=== PATIENT | male | born 1935 | race Caucasian/White ===

== ENCOUNTER 2019-02-18 23:14 | Inpatient (IN) | payer MEDICARE, OTHER ==
[~2019-02-18] VITALS: Ht 175.3 cm; Wt 70.2 kg
--- NOTE | 2019-02-18 23:30 | NUR ---
PT ARRIVES POST SYNCOPAL EPISODE PER , NOTED TO BE IN 2:1 ATRIAL FLUTTER.
[2019-02-18] MEDS ORDERED: diltiazem 5mg/ml 5ml inj. IV ONE (23:35)
[2019-02-18] MEDS ORDERED: POTA10TA19 PO (23:40)
[2019-02-18] MEDS ORDERED: FURO-150 PO (23:41)
[2019-02-18] MEDS ORDERED: METO25TA6 PO (23:41)
[2019-02-18] MEDS ORDERED: ATOR20TA PO (23:41)
--- NOTE | 2019-02-18 23:49 | NUR ---
PT HEART DOWN TO 70'S, STILL IN AFLUTTER WITH VARIABLE RATE.
[2019-02-19] VITALS (12 sets, daily range): BP systolic 118–137; BP diastolic 59–86
[2019-02-19 00:10] LABS: ALANINE AMINOTRANSFERASE 42 U/L (12-78); ALBUMIN 3.5 G/DL (3.4-5.0); ALBUMIN/GLOBULIN RATIO 1.2 (1.1-1.5); ALKALINE PHOSPHATASE 66 IU/L (46-116); ANION GAP 7 (8-16); ASPARTATE AMINO TRANSFERASE 41 U/L (10-37); BILIRUBIN,TOTAL 0.4 MG/DL (0.1-1.0); BLOOD UREA NITROGEN 24 MG/DL (7-18); BUN/CREATININE RATIO 19.2 (5.4-32.0); CALCIUM 8.8 MG/DL (8.5-10.1); CHLORIDE 108 MMOL/L (99-107); CREATININE 1.25 MG/DL (0.60-1.10); GLUCOSE 112 MG/DL (70-104); POTASSIUM 3.8 MMOL/L (3.5-5.1); SODIUM 145 MMOL/L (135-145); TOTAL CARBON DIOXIDE 29.7 MMOL/L (24-32); TOTAL PROTEIN 6.4 G/DL (6.4-8.2); eGFR 55 ML/MIN
[2019-02-19 00:17] LABS: MAGNESIUM 2.2 MG/DL (1.5-2.4)
[2019-02-19] MEDS ORDERED: aspirin 81mg tab.chew PO ONE (00:25)
[2019-02-19 00:31] LABS: BASOPHILS # (AUTO) 0.1 X10'3 (0-0.2); BASOPHILS % (AUTO) 1.2 % (0-1); EOSINOPHILS # (AUTO) 0.1 X10'3 (0-0.9); EOSINOPHILS % (AUTO) 2.1 % (0-6); HEMATOCRIT 31.9 % (42.0-52.0); HEMOGLOBIN 10.8 g/dl (14.0-17.9); LYMPHOCYTES # (AUTO) 1.3 X10'3 (1.1-4.8); LYMPHOCYTES % (AUTO) 24.4 % (21-51); MEAN CORPUSCULAR HEMOGLOBIN 35.9 PG (27.0-31.0); MEAN CORPUSCULAR HGB CONC 33.8 g/dL (33.0-36.5); MEAN CORPUSCULAR VOLUME 106.4 FL (78-98); MEAN PLATELET VOLUME 11.5 FL (7.4-10.4); MONOCYTES # (AUTO) 0.5 X10'3 (0-0.9); MONOCYTES % (AUTO) 8.8 % (2-12); NEUTROPHILS # (AUTO) 3.4 X10'3 (1.8-7.7); NEUTROPHILS % (AUTO) 63.5 % (42-75); PLATELET COUNT 87 X10'3 (140-440); RED CELL DISTRIBUTION WIDTH 13.8 % (11.5-14.5); WHITE BLOOD COUNT 5.4 X10'3 (4.5-11.0)
[2019-02-19 00:32] LABS: INR 1.1 INR; PARTIAL THROMBOPLASTIN TIME 25 SECONDS (22-32)
[2019-02-19 01:02] LABS: PLATELET ESTIMATE DECREASED
[2019-02-19 01:03] LABS: LARGE PLATELETS MODERATE
[2019-02-19] MEDS ORDERED: enoxaparin 100mg/ml syringe SUBCUT ONE (01:15)
[2019-02-19] MEDS ORDERED: enoxaparin 80mg/0.8ml syringe SUBCUT ONE (01:15)
--- NOTE | 2019-02-19 01:19 | NUR ---
2ND TIME CALLING FOR @ 01:20
--- NOTE | 2019-02-19 03:07 | NUR ---
3 HR TROP DRAWN, PT COMFORTABLE, DENIES CP OR WEAKNESS/DIZZINESS. AWAITING ADMIT ORDERS.
[2019-02-19] MEDS ORDERED: normal saline 1000ml 1,000 ML IV SCH (03:26)
[2019-02-19] MEDS ORDERED: acetaminophen 325mg tablet PO PRN (03:30)
[2019-02-19] MEDS ORDERED: mag hydrox/Alum hydrox/simeth 30ml oral suspension PO PRN (03:30)
[2019-02-19] MEDS ORDERED: ondansetron/PF 4mg/2ml inj IV PRN ×2 (03:30→17:00)
[2019-02-19] MEDS ORDERED: magnesium hydroxide 30ml (MOM) UD suspension PO PRN (03:30)
--- NOTE | 2019-02-19 06:51 | NUR ---
Patient in room MED 307. I have received report from Lamont ARAMBULA and had the opportunity to ask questions and assume patient care.
--- NOTE | 2019-02-19 07:46 | NUR ---
Critical trop 2.1, paged Dr Smiley PAGER ID: [phone] MESSAGE: Liss on ACCE at [phone] re Sarbjit Gutierrez in 307. He has a critical troponin this morning of 2.1, this is up from 1.64. He is also in A Flutter with a current rate of 108. please advise Addendum: 02/19/19 at 0747 by Liss Khanna RN Sherice returned my call, She said to DC the lovenox and she will be over here to assess patient.
[2019-02-19] MEDS ORDERED: enoxaparin 60mg/0.6ml syringe SUBCUT SCH (08:00)
[2019-02-19] MEDS ORDERED: diltiazem-D5W 125mg/125ml 125 ML IV SCH (08:20)
[2019-02-19] MEDS ORDERED: metoprolol tartrate 12.5mg (1/2 tablet) PO SCH ×2 (09:20→20:00)
--- NOTE | 2019-02-19 11:20 | NUR ---
DR. DOVE PRESENT TO CONSULT WITH PATIENT ABOUT LIQUID YEAST SUPERVISOR WITH PRESENT AT BEDSIDE DISCUSSING OPTIONS WITH MD. PLAN IS TO GO TO LIQUID YEAST SUPERVISOR TODAY.
--- NOTE | 2019-02-19 11:25 | NUR ---
Trop 2.05, Dr Hudson present and aware of troponin. Patient going to wastewater analyst lab analyst today.
[2019-02-19] MEDS ORDERED: fentaNYL/PF 50MCG/1 ML 2ML syringe ONE (13:03)
[2019-02-19] MEDS ORDERED: LIDOcaine 1% (10mg/ml)w/preservative injection 20ml MDV ONE (13:04)
[2019-02-19] MEDS ORDERED: iohexol 350 MG/ML 50ML vial IV ONE ×2 (13:04→13:50)
[2019-02-19] MEDS ORDERED: midazolam 2 mg/2 ml injection ONE (13:04)
[2019-02-19] MEDS ORDERED: iohexol 350MG/ML 100ml bottle IV ONE (13:04)
--- NOTE | 2019-02-19 13:20 | NUR ---
Patient picked up and taken to medical lab technologist, with present at time of departure.
--- NOTE | 2019-02-19 14:40 | NUR ---
DAJA RN ATTEMPTED TO CALL REPORT TO PCU- PATIENT GOING TO [id number]
--- NOTE | 2019-02-19 14:40 | NUR ---
Attempted to call report to PCU, patient transferring to room 3025B after clinical lab specialist.
--- NOTE | 2019-02-19 15:20 | NUR ---
Problems reprioritized. Patient report given, questions answered & plan of care reviewed with Joseline ARAMBULA.
[2019-02-19] MEDS: normal saline 1000ml 1,000 ML IV SCH (16:55)
[2019-02-19] MEDS ORDERED: HYDROcodone/acetaminophen 5mg/325mg tablet PO PRN (17:00)
[2019-02-19] MEDS ORDERED: HYDROcodone/acetaminophen 10/325mg tab PO PRN (17:00)
[2019-02-19] MEDS ORDERED: proCHLORperazine 10 MG/2 ml inj IV PRN (17:00)
[2019-02-19] MEDS ORDERED: nitroGLYCERIN 0.4mg SUBLingual tab SL PRN (17:00)
[2019-02-19] MEDS ORDERED: OXAZEpam 15mg capsule PO PRN (17:00)
[2019-02-19 17:51] LABS: % IRON SATURATION 40 % (11-46); IRON 94 UG/DL (53-167); TOTAL IRON BINDING CAPACITY 236 UG/DL (259-388)
--- NOTE | 2019-02-19 18:07 | NUR ---
Unable to do transfer skin assessment right now due to patient lying flat and minimal movement until Femstop is off.
--- NOTE | 2019-02-19 18:13 | NUR ---
Problems reprioritized. Patient report given, questions answered & plan of care reviewed with RALF Rajput. Cath site assessed with NOC RN and no hematoma is present, dressing is dry, clean and intact.
[2019-02-19] MEDS ORDERED: heparin, porcine 5000 units/ml vial SQ SCH (20:00)
[2019-02-19] MEDS: metoprolol tartrate 25mg tablet PO SCH (20:17)
[2019-02-19] MEDS: atorvastatin 20mg tablet PO SCH (20:17)
[2019-02-19] MEDS ORDERED: metoprolol tartrate 25mg tablet PO SCH (21:00)
[2019-02-20] MEDS: normal saline 1000ml 1,000 ML IV SCH (00:13)
[2019-02-20 03:00] VITALS: BP 115/66
[2019-02-20 06:00] VITALS: BP 114/57
[2019-02-20 06:13] LABS: BASOPHILS # (AUTO) 0.1 X10'3 (0-0.2); BASOPHILS % (AUTO) 1.3 % (0-1); EOSINOPHILS # (AUTO) 0.1 X10'3 (0-0.9); EOSINOPHILS % (AUTO) 1.4 % (0-6); HEMATOCRIT 32.7 % (42.0-52.0); LYMPHOCYTES # (AUTO) 1.1 X10'3 (1.1-4.8); LYMPHOCYTES % (AUTO) 15.7 % (21-51); MEAN CORPUSCULAR HGB CONC 33.6 g/dL (33.0-36.5); MEAN CORPUSCULAR VOLUME 107.1 FL (78-98); MEAN PLATELET VOLUME 11.4 FL (7.4-10.4); MONOCYTES # (AUTO) 0.5 X10'3 (0-0.9); MONOCYTES % (AUTO) 6.9 % (2-12); NEUTROPHILS # (AUTO) 5.1 X10'3 (1.8-7.7); NEUTROPHILS % (AUTO) 74.7 % (42-75); PLATELET COUNT 85 X10'3 (140-440); RED BLOOD COUNT 3.05 X10'6 (4.70-6.10); RED CELL DISTRIBUTION WIDTH 14.3 % (11.5-14.5); WHITE BLOOD COUNT 6.8 X10'3 (4.5-11.0)
[2019-02-20 06:20] LABS: ALANINE AMINOTRANSFERASE 33 U/L (12-78); ALBUMIN 2.9 G/DL (3.4-5.0); ALKALINE PHOSPHATASE 62 IU/L (46-116); ANION GAP 8 (8-16); ASPARTATE AMINO TRANSFERASE 30 U/L (10-37); BILIRUBIN,TOTAL 0.8 MG/DL (0.1-1.0); BLOOD UREA NITROGEN 17 MG/DL (7-18); BUN/CREATININE RATIO 16.8 (5.4-32.0); CALCIUM 8.5 MG/DL (8.5-10.1); CHLORIDE 111 MMOL/L (99-107); CREATININE 1.01 MG/DL (0.60-1.10); GLUCOSE 82 MG/DL (70-104); POTASSIUM 4.2 MMOL/L (3.5-5.1); SODIUM 143 MMOL/L (135-145); TOTAL CARBON DIOXIDE 23.6 MMOL/L (24-32); TOTAL PROTEIN 5.7 G/DL (6.4-8.2); eGFR 71 ML/MIN
--- NOTE | 2019-02-20 06:38 | NUR ---
Problems reprioritized. Patient report given, questions answered & plan of care reviewed with RALF Mart.
[2019-02-20] MEDS: rivaroxaban 15mg tablet PO SCH (08:17)
[2019-02-20] MEDS: metoprolol tartrate 25mg tablet PO SCH ×2 (08:17→19:29)
[2019-02-20 11:00] VITALS: BP 129/67
[2019-02-20 15:00] VITALS: BP 139/88
--- NOTE | 2019-02-20 16:31 | NUR ---
Heart rate maintaining 130's even at rest, call placed to Dr Smiley, placed pt on PO cardizem.
[2019-02-20 18:00] VITALS: BP 143/95
[2019-02-20] MEDS: diltiazem SR 60mg capsule (twice daily) PO SCH (19:29)
[2019-02-20] MEDS: atorvastatin 20mg tablet PO SCH (19:29)
[2019-02-20 22:00] VITALS: BP 129/82
[2019-02-21 02:00] VITALS: BP 120/75
--- NOTE | 2019-02-21 02:44 | NUR ---
Call DR Barr for HR 148 order Cardizem 10 mg IV push x1 I Jesse RN
[2019-02-21] MEDS ORDERED: diltiazem 5mg/ml 5ml inj. IV ONE (02:45)
[2019-02-21 05:23] LABS: BASOPHILS % (AUTO) 0.7 % (0-1); EOSINOPHILS # (AUTO) 0.1 X10'3 (0-0.9); EOSINOPHILS % (AUTO) 1.3 % (0-6); HEMOGLOBIN 10.9 g/dl (14.0-17.9); LYMPHOCYTES # (AUTO) 1.2 X10'3 (1.1-4.8); LYMPHOCYTES % (AUTO) 17.5 % (21-51); MEAN CORPUSCULAR HEMOGLOBIN 36.2 PG (27.0-31.0); MEAN CORPUSCULAR VOLUME 106.5 FL (78-98); MEAN PLATELET VOLUME 12.2 FL (7.4-10.4); MONOCYTES # (AUTO) 0.7 X10'3 (0-0.9); MONOCYTES % (AUTO) 10.2 % (2-12); NEUTROPHILS # (AUTO) 4.8 X10'3 (1.8-7.7); NEUTROPHILS % (AUTO) 70.3 % (42-75); PLATELET COUNT 88 X10'3 (140-440); RED CELL DISTRIBUTION WIDTH 14.1 % (11.5-14.5); WHITE BLOOD COUNT 6.8 X10'3 (4.5-11.0)
[2019-02-21 05:48] LABS: ALANINE AMINOTRANSFERASE 30 U/L (12-78); ALBUMIN 2.9 G/DL (3.4-5.0); ALKALINE PHOSPHATASE 60 IU/L (46-116); ANION GAP 8 (8-16); ASPARTATE AMINO TRANSFERASE 24 U/L (10-37); BILIRUBIN,TOTAL 0.8 MG/DL (0.1-1.0); BLOOD UREA NITROGEN 15 MG/DL (7-18); BUN/CREATININE RATIO 16.5 (5.4-32.0); CALCIUM 8.2 MG/DL (8.5-10.1); CHLORIDE 108 MMOL/L (99-107); CREATININE 0.91 MG/DL (0.60-1.10); GLUCOSE 91 MG/DL (70-104); POTASSIUM 3.9 MMOL/L (3.5-5.1); SODIUM 140 MMOL/L (135-145); TOTAL CARBON DIOXIDE 24.1 MMOL/L (24-32); TOTAL PROTEIN 5.8 G/DL (6.4-8.2); eGFR 80 ML/MIN
[2019-02-21 06:00] VITALS: BP 120/76
--- NOTE | 2019-02-21 06:30 | NUR ---
Patient in room PCU 3026. I have received report from Anna ARAMBULA and had the opportunity to ask questions and assume patient care. Patient resting comfortably and in no acute distress. Will continue to monitor.
[2019-02-21 06:58] LABS: PLATELET ESTIMATE DECREASED
[2019-02-21 06:59] LABS: LARGE PLATELETS FEW
--- NOTE | 2019-02-21 07:02 | NUR ---
Paged Dr. Souza: PAGER ID: [phone] MESSAGE: Jen Lizeth [phone] RE: Sarbjit Gutierrez [id number] Patient HR trending in high 140's. Patient received IV Cardizem 10mg @ 0300. Please advise. Thank you.
[2019-02-21] MEDS ORDERED: metoprolol tartrate 1mg/ml inj IV PRN (07:10)
[2019-02-21] MEDS ORDERED: metoprolol tartrate 1mg/ml inj IV ONE (07:10)
--- NOTE | 2019-02-21 07:10 | NUR ---
New orders per Dr. Souza: 5 mg IV metoprolol once. 5 mg IV metroprolol Q5 minutes PRN HR > 130.
[2019-02-21] MEDS: metoprolol tartrate 25mg tablet PO SCH (07:28)
[2019-02-21] MEDS: diltiazem SR 60mg capsule (twice daily) PO SCH (07:28)
[2019-02-21] MEDS: rivaroxaban 15mg tablet PO SCH (08:33)
[2019-02-21 11:00] VITALS: BP 110/69
[2019-02-21] MEDS: amiodarone 200mg tablet PO SCH ×2 (13:15→20:15)
[2019-02-21 15:00] VITALS: BP 112/63
[2019-02-21 18:00] VITALS: BP 83/52
--- NOTE | 2019-02-21 18:30 | NUR ---
Patient in room PCU 3026. I have received report from Jen ARAMBULA and had the opportunity to ask questions and assume patient care.
--- NOTE | 2019-02-21 19:02 | NUR ---
Orientee documentation: I have reviewed and agree with all interventions, assessments performed and documented by Oscar RN. [place]ee Medication Administration: For this medication-pass time frame, all medication were reviewed, dispensed, administered and documented per hospital policy by Oscar RN.
[2019-02-21] MEDS ORDERED: carVEDilol 12.5mg tablet PO SCH (20:00)
[2019-02-21] MEDS: carVEDilol 12.5mg tablet PO SCH (20:15)
[2019-02-21] MEDS: atorvastatin 20mg tablet PO SCH (20:15)
[2019-02-21 22:00] VITALS: BP 101/35
[2019-02-22 02:00] VITALS: BP 102/57
[2019-02-22 05:19] LABS: BASOPHILS % (AUTO) 0.8 % (0-1); EOSINOPHILS # (AUTO) 0.1 X10'3 (0-0.9); EOSINOPHILS % (AUTO) 1.3 % (0-6); HEMATOCRIT 29.8 % (42.0-52.0); HEMOGLOBIN 10.1 g/dl (14.0-17.9); LYMPHOCYTES # (AUTO) 1.1 X10'3 (1.1-4.8); LYMPHOCYTES % (AUTO) 19.8 % (21-51); MEAN CORPUSCULAR HEMOGLOBIN 36.2 PG (27.0-31.0); MEAN CORPUSCULAR VOLUME 106.6 FL (78-98); MEAN PLATELET VOLUME 11.6 FL (7.4-10.4); MONOCYTES # (AUTO) 0.5 X10'3 (0-0.9); MONOCYTES % (AUTO) 9.3 % (2-12); NEUTROPHILS # (AUTO) 3.7 X10'3 (1.8-7.7); NEUTROPHILS % (AUTO) 68.8 % (42-75); PLATELET COUNT 80 X10'3 (140-440); RED CELL DISTRIBUTION WIDTH 14.2 % (11.5-14.5); WHITE BLOOD COUNT 5.3 X10'3 (4.5-11.0)
[2019-02-22 05:56] LABS: ALANINE AMINOTRANSFERASE 28 U/L (12-78); ALBUMIN 2.8 G/DL (3.4-5.0); ALKALINE PHOSPHATASE 58 IU/L (46-116); ANION GAP 6 (8-16); ASPARTATE AMINO TRANSFERASE 25 U/L (10-37); BILIRUBIN,TOTAL 0.8 MG/DL (0.1-1.0); BLOOD UREA NITROGEN 19 MG/DL (7-18); BUN/CREATININE RATIO 17.8 (5.4-32.0); CALCIUM 8.2 MG/DL (8.5-10.1); CHLORIDE 107 MMOL/L (99-107); CREATININE 1.07 MG/DL (0.60-1.10); GLUCOSE 102 MG/DL (70-104); POTASSIUM 4.2 MMOL/L (3.5-5.1); SODIUM 138 MMOL/L (135-145); TOTAL CARBON DIOXIDE 24.7 MMOL/L (24-32); TOTAL PROTEIN 5.6 G/DL (6.4-8.2); eGFR 66 ML/MIN
--- NOTE | 2019-02-22 06:06 | NUR ---
Problems reprioritized. Patient report given, questions answered & plan of care reviewed with Jen ARAMBULA.
--- NOTE | 2019-02-22 06:09 | NUR ---
Patient in room PCU 3026. I have received report from RALF Arauz and had the opportunity to ask questions and assume patient care. Patient resting comfortably in bed. In no acute distress. Will continue to monitor.
[2019-02-22 06:30] LABS: PLATELET ESTIMATE DECREASED
[2019-02-22 06:31] LABS: GIANT PLATELET FEW; LARGE PLATELETS FEW
[2019-02-22 07:00] VITALS: BP 125/67
[2019-02-22] MEDS: carVEDilol 12.5mg tablet PO SCH (07:36)
[2019-02-22] MEDS: rivaroxaban 15mg tablet PO SCH (07:37)
[2019-02-22] MEDS: amiodarone 200mg tablet PO SCH ×2 (07:37→13:25)
[2019-02-22 11:00] VITALS: BP 118/56
[2019-02-22] MEDS ORDERED: CARV25TA2 PO (11:00)
[2019-02-22] MEDS ORDERED: AMIO200T40 PO (11:00)
[2019-02-22] MEDS ORDERED: RIVA20TA PO (11:00)
--- NOTE | 2019-02-22 14:25 | NUR ---
Patient stable for discharger per MD orders. All discharge instructions reviewed with patient and all questions answered. Patient educated Patient to follow up with Dr. Dumont for EKG in 1 week and repeat in 1 week. Patient to follow up with PCP in 2 weeks. New prescriptions for medications provided by [facility]. PIV discontinued - cannula intact. Telemetry monitoring discontinued. All belongings and bedside delivery medications sent with patient in private vehicle to home. Patient wheeled to lobby by RN.
== END 2019-02-22 14:22 | disposition home or self-care (01) | DRG 281 ==
LOC: ER 23:15 → MED 3N 02-19 03:28 → EDBEDREQSVC 02-19 04:37 → PCU 3S 02-19 14:49
PROVIDERS: ADMIT Internal Medicine; ATTEND Family Medicine
PROC: 4A023N7 Measurement of Cardiac Sampling and Pressure, Left Heart, Percutaneous Approach (ICD-10-PCS; principal; 2019-02-19)
PROC: B2111ZZ Fluoroscopy of Multiple Coronary Arteries using Low Osmolar Contrast (ICD-10-PCS; 2019-02-19)
PROC: B2151ZZ Fluoroscopy of Left Heart using Low Osmolar Contrast (ICD-10-PCS; 2019-02-19)
PROC: B2181ZZ Fluoroscopy of Left Internal Mammary Bypass Graft using Low Osmolar Contrast (ICD-10-PCS; 2019-02-19)
PROC: B2131ZZ Fluoroscopy of Multiple Coronary Artery Bypass Grafts using Low Osmolar Contrast (ICD-10-PCS; 2019-02-19)
DX: I21.4 Non-ST elevation (NSTEMI) myocardial infarction (principal); I48.92 Unspecified atrial flutter; I13.0 Hypertensive heart and chronic kidney disease with heart failure and stage 1 through stage 4 chronic kidney disease, or unspecified chronic kidney disease; D53.1 Other megaloblastic anemias, not elsewhere classified; D69.6 Thrombocytopenia, unspecified; E78.00 Pure hypercholesterolemia, unspecified; E78.5 Hyperlipidemia, unspecified; I25.10 Atherosclerotic heart disease of native coronary artery without angina pectoris; I48.0 Paroxysmal atrial fibrillation; I50.9 Heart failure, unspecified; M54.31 Sciatica, right side; N18.3 Chronic kidney disease, stage 3 (moderate); Z66 Do not resuscitate; Z95.1 Presence of aortocoronary bypass graft; I25.2 Old myocardial infarction; Z90.49 Acquired absence of other specified parts of digestive tract; Z88.0 Allergy status to penicillin; Z79.899 Other long term (current) drug therapy; Z87.891 Personal history of nicotine dependence
CPT/HCPCS: 36415; 71045; 80053; 82607; 83540; 83550; 83735; 83880; 84439; 84443; 84484; 85025; 85610; 85730; 87070; 93005; 93459; 96372; 96374; 99152; 99153; 99285; A4620; A6257; C1769; G0378; J1644; J1650; J2001; J2250; J3010; J3490; J7030; Q9967

== ENCOUNTER 2019-02-23 22:53 | Inpatient (IN) | payer MEDICARE, OTHER ==
[~2019-02-23] VITALS: Ht 175.3 cm; Wt 72.7 kg
[~2019-02-23 22:53] MED LIST: AMIO200T40 PO; ATOR20TA PO; CARV25TA2 PO; FURO-150 PO; POTA10TA19 PO; RIVA20TA PO
[2019-02-23] MEDS ORDERED: normal saline 1000ML IV soln IVB ONE (23:05)
[2019-02-23 23:22] LABS: BASOPHILS # (AUTO) 0.1 X10'3 (0-0.2); BASOPHILS % (AUTO) 1.4 % (0-1); EOSINOPHILS # (AUTO) 0.1 X10'3 (0-0.9); EOSINOPHILS % (AUTO) 1.8 % (0-6); HEMATOCRIT 30.3 % (42.0-52.0); HEMOGLOBIN 10.2 g/dl (14.0-17.9); LYMPHOCYTES # (AUTO) 1.2 X10'3 (1.1-4.8); LYMPHOCYTES % (AUTO) 19.4 % (21-51); MEAN CORPUSCULAR HEMOGLOBIN 36.2 PG (27.0-31.0); MEAN CORPUSCULAR HGB CONC 33.7 g/dL (33.0-36.5); MEAN CORPUSCULAR VOLUME 107.3 FL (78-98); MEAN PLATELET VOLUME 11.6 FL (7.4-10.4); MONOCYTES # (AUTO) 0.6 X10'3 (0-0.9); MONOCYTES % (AUTO) 10.2 % (2-12); NEUTROPHILS % (AUTO) 67.2 % (42-75); PLATELET COUNT 94 X10'3 (140-440); RED BLOOD COUNT 2.82 X10'6 (4.70-6.10); RED CELL DISTRIBUTION WIDTH 14.6 % (11.5-14.5)
[2019-02-23 23:38] LABS: ALANINE AMINOTRANSFERASE 31 U/L (12-78); ALBUMIN 2.9 G/DL (3.4-5.0); ALBUMIN/GLOBULIN RATIO 0.9 (1.1-1.5); ALKALINE PHOSPHATASE 66 IU/L (46-116); ANION GAP 9 (8-16); ASPARTATE AMINO TRANSFERASE 25 U/L (10-37); BILIRUBIN,TOTAL 0.4 MG/DL (0.1-1.0); BLOOD UREA NITROGEN 22 MG/DL (7-18); BUN/CREATININE RATIO 16.4 (5.4-32.0); CALCIUM 9.1 MG/DL (8.5-10.1); CHLORIDE 107 MMOL/L (99-107); CREATININE 1.34 MG/DL (0.60-1.10); GLUCOSE 105 MG/DL (70-104); POTASSIUM 4.1 MMOL/L (3.5-5.1); SODIUM 140 MMOL/L (135-145); TOTAL CARBON DIOXIDE 24.3 MMOL/L (24-32); eGFR 51 ML/MIN
[2019-02-23 23:46] LABS: MAGNESIUM 2.1 MG/DL (1.5-2.4)
[2019-02-24] VITALS (8 sets, daily range): BP systolic 96–149; BP diastolic 52–100
--- NOTE | 2019-02-24 00:12 | NUR ---
Patient resting comfortably in bed with family at the bedside. Updated on POC.
[2019-02-24 00:18] LABS: D-DIMER 2.01 MG/L FEU (0-0.50)
[2019-02-24] MEDS ORDERED: iohexol 350MG/ML 100ml bottle IV ONE (00:50)
--- NOTE | 2019-02-24 02:08 | NUR ---
Sonya: [phone] cell Angie: [phone]
[2019-02-24] MEDS ORDERED: mag hydrox/Alum hydrox/simeth 30ml oral suspension PO PRN (03:05)
[2019-02-24] MEDS ORDERED: ondansetron/PF 4mg/2ml inj IV PRN (03:05)
[2019-02-24] MEDS ORDERED: potassium Cl 20 mEq SR tablet PO PRN ×4 (03:05→07:45)
[2019-02-24] MEDS ORDERED: magnesium 2GM in 50ml NS 50 ML IV PRN ×2 (03:05→07:45)
[2019-02-24] MEDS ORDERED: acetaminophen 325mg tablet PO PRN ×2 (03:05)
[2019-02-24] MEDS ORDERED: potassium Cl 40MEQ/NS 500ml 500 ML IV PRN ×2 (03:05)
[2019-02-24] MEDS ORDERED: magnesium hydroxide 30ml (MOM) UD suspension PO PRN (03:05)
[2019-02-24] MEDS ORDERED: magnesium Cl slow-release 64mg tablet PO PRN (03:05)
[2019-02-24] MEDS ORDERED: magnesium 4gm in 100ml NS 100 ML IV PRN ×2 (03:05→07:45)
--- NOTE | 2019-02-24 07:02 | NUR ---
Received report from Wing ARAMBULA in the ED. Awaiting patient's arrival to the unit.
[2019-02-24] MEDS: furosemide 20MG tablet PO SCH (07:39)
[2019-02-24] MEDS: rivaroxaban 20mg tablet PO SCH (07:39)
[2019-02-24] MEDS: potassium chloride 10mEq ER tablet PO SCH (07:43)
[2019-02-24] MEDS: K and/or MAG REPLACEMENT MC SCH (08:00)
--- NOTE | 2019-02-24 08:15 | NUR ---
Patient arrived to the unit, placed on telemetry monitoring, vital signs obtained, belongings placed on bedside dresser, and patient oriented to the room and call light. Will continue to monitor patient. Addendum: 02/24/19 at 1820 by Karen Kapoor RN 2 RN skin check complete
[2019-02-24] MEDS: carVEDilol 12.5mg tablet PO SCH ×2 (10:51→20:00)
[2019-02-24] MEDS: amiodarone 200mg tablet PO SCH (10:52)
[2019-02-24] MEDS ORDERED: morphine 10mg/ml inj. IV ONE (16:45)
[2019-02-24] MEDS ORDERED: MIDAZolam 1mg/ml 10ml vial IV ONE (16:45)
--- NOTE | 2019-02-24 17:55 | NUR ---
Patient is refusing a new IV at this time. Educated on need to initiate new IV access, patient still refusing.
--- NOTE | 2019-02-24 18:00 | NUR ---
Cardioversion successful, patient converted to NSP after one 150 joule shock. 4mg of morphine and 4mg of versed given. Will continue to monitor patient closely.
--- NOTE | 2019-02-24 18:24 | NUR ---
Problems reprioritized. Patient report given, questions answered & plan of care reviewed with Renetta ARAMBULA. Patient stable at transfer of care.
[2019-02-24] MEDS: atorvastatin 20mg tablet PO SCH (20:21)
[2019-02-25 02:00] VITALS: BP 135/64
[2019-02-25 06:53] LABS: BASOPHILS # (AUTO) 0.1 X10'3 (0-0.2); BASOPHILS % (AUTO) 1.2 % (0-1); EOSINOPHILS # (AUTO) 0.2 X10'3 (0-0.9); EOSINOPHILS % (AUTO) 2.7 % (0-6); HEMATOCRIT 30.6 % (42.0-52.0); HEMOGLOBIN 10.3 g/dl (14.0-17.9); LYMPHOCYTES # (AUTO) 1.5 X10'3 (1.1-4.8); LYMPHOCYTES % (AUTO) 21.6 % (21-51); MEAN CORPUSCULAR HEMOGLOBIN 36.2 PG (27.0-31.0); MEAN CORPUSCULAR HGB CONC 33.7 g/dL (33.0-36.5); MEAN CORPUSCULAR VOLUME 107.2 FL (78-98); MEAN PLATELET VOLUME 11.6 FL (7.4-10.4); MONOCYTES # (AUTO) 0.7 X10'3 (0-0.9); NEUTROPHILS # (AUTO) 4.3 X10'3 (1.8-7.7); NEUTROPHILS % (AUTO) 63.5 % (42-75); PLATELET COUNT 103 X10'3 (140-440); RED BLOOD COUNT 2.86 X10'6 (4.70-6.10); RED CELL DISTRIBUTION WIDTH 14.8 % (11.5-14.5); WHITE BLOOD COUNT 6.8 X10'3 (4.5-11.0)
[2019-02-25 07:00] VITALS: BP 146/70
[2019-02-25 07:06] LABS: ALBUMIN 2.9 G/DL (3.4-5.0); ANION GAP 10 (8-16); BLOOD UREA NITROGEN 24 MG/DL (7-18); BUN/CREATININE RATIO 16.7 (5.4-32.0); CHLORIDE 106 MMOL/L (99-107); CREATININE 1.44 MG/DL (0.60-1.10); GLUCOSE 89 MG/DL (70-104); POTASSIUM 4.6 MMOL/L (3.5-5.1); SODIUM 140 MMOL/L (135-145); TOTAL CARBON DIOXIDE 24.5 MMOL/L (24-32); eGFR 47 ML/MIN
[2019-02-25 07:19] LABS: LARGE PLATELETS FEW; PLATELET ESTIMATE DECREASED
--- NOTE | 2019-02-25 07:59 | NUR ---
Patient in room PCU 3025. I have received report from Renetta ARAMBULA and had the opportunity to ask questions and assume patient care. Patient sleeping, will continue to monitor.
[2019-02-25] MEDS: K and/or MAG REPLACEMENT MC SCH (08:00)
[2019-02-25] MEDS ORDERED: carVEDilol 12.5mg tablet PO SCH (08:00)
[2019-02-25] MEDS: rivaroxaban 20mg tablet PO SCH (08:21)
[2019-02-25] MEDS: amiodarone 200mg tablet PO SCH (08:21)
[2019-02-25] MEDS: furosemide 20MG tablet PO SCH (08:21)
[2019-02-25] MEDS: potassium chloride 10mEq ER tablet PO SCH (08:21)
--- NOTE | 2019-02-25 10:57 | NUR ---
Sent page to vascular: [id number] Sarbjit Gutierrez: Per housekeeping/laundry supervisor and MD, test needs to be done before 12. Thanks, Karen [phone]
[2019-02-25 11:00] VITALS: BP 143/58
[2019-02-25] MEDS ORDERED: potassium Cl 20 mEq SR tablet PO PRN (13:55)
[2019-02-25 15:00] VITALS: BP 131/76
[2019-02-25 18:00] VITALS: BP 121/54
--- NOTE | 2019-02-25 18:17 | NUR ---
Problems reprioritized. Patient report given, questions answered & plan of care reviewed with Sarah ARAMBULA. Patient sleeping, stable at transfer of care. Addendum: 02/25/19 at 1818 by Karen Kapoor RN Note entered in error, wrong patient
--- NOTE | 2019-02-25 18:17 | NUR ---
Problems reprioritized. Patient report given, questions answered & plan of care reviewed with Renetta ARAMBULA. Patient stable at transfer of care.
[2019-02-25] MEDS: carvedilol 6.25mg tablet PO SCH (20:00)
[2019-02-25] MEDS ORDERED: carvedilol 6.25mg tablet PO SCH (21:00)
[2019-02-25] MEDS: atorvastatin 20mg tablet PO SCH (21:49)
[2019-02-25 22:00] VITALS: BP 136/55
[2019-02-26 02:00] VITALS: BP 132/59
[2019-02-26 06:13] LABS: BASOPHILS % (AUTO) 0.8 % (0-1); EOSINOPHILS # (AUTO) 0.2 X10'3 (0-0.9); EOSINOPHILS % (AUTO) 2.9 % (0-6); HEMATOCRIT 28.9 % (42.0-52.0); LYMPHOCYTES % (AUTO) 17.7 % (21-51); MEAN CORPUSCULAR HEMOGLOBIN 36.6 PG (27.0-31.0); MEAN CORPUSCULAR HGB CONC 34.7 g/dL (33.0-36.5); MEAN CORPUSCULAR VOLUME 105.4 FL (78-98); MEAN PLATELET VOLUME 11.5 FL (7.4-10.4); MONOCYTES # (AUTO) 0.6 X10'3 (0-0.9); MONOCYTES % (AUTO) 10.6 % (2-12); NEUTROPHILS # (AUTO) 3.9 X10'3 (1.8-7.7); PLATELET COUNT 97 X10'3 (140-440); RED BLOOD COUNT 2.74 X10'6 (4.70-6.10); RED CELL DISTRIBUTION WIDTH 14.1 % (11.5-14.5); WHITE BLOOD COUNT 5.7 X10'3 (4.5-11.0)
[2019-02-26 06:49] LABS: ALBUMIN 2.8 G/DL (3.4-5.0); ANION GAP 6 (8-16); BLOOD UREA NITROGEN 21 MG/DL (7-18); BUN/CREATININE RATIO 17.9 (5.4-32.0); CALCIUM 8.2 MG/DL (8.5-10.1); CHLORIDE 106 MMOL/L (99-107); CREATININE 1.17 MG/DL (0.60-1.10); GLUCOSE 81 MG/DL (70-104); MAGNESIUM 1.8 MG/DL (1.5-2.4); POTASSIUM 3.7 MMOL/L (3.5-5.1); SODIUM 139 MMOL/L (135-145); TOTAL CARBON DIOXIDE 26.6 MMOL/L (24-32); eGFR 60 ML/MIN
[2019-02-26 07:00] VITALS: BP 142/66
[2019-02-26 07:16] LABS: HYPOCHROMASIA 1+; LARGE PLATELETS FEW; PLATELET ESTIMATE DECREASED; POLYCHROMASIA 1+
[2019-02-26] MEDS: K and/or MAG REPLACEMENT MC SCH (08:29)
[2019-02-26] MEDS: furosemide 20MG tablet PO SCH (09:01)
[2019-02-26] MEDS: carvedilol 6.25mg tablet PO SCH ×2 (09:01→20:40)
[2019-02-26] MEDS: amiodarone 200mg tablet PO SCH (09:01)
[2019-02-26] MEDS: rivaroxaban 20mg tablet PO SCH (09:01)
[2019-02-26] MEDS: normal saline 1000ml 1,000 ML IV SCH ×2 (09:05→19:00)
[2019-02-26] MEDS: potassium chloride 10mEq ER tablet PO SCH (09:05)
[2019-02-26] MEDS ORDERED: iohexol 350MG/ML 100ml bottle IV ONE (10:36)
[2019-02-26] MEDS: acetylcysteine 200 MG/ml 4ml vial PO SCH ×2 (11:25→20:40)
--- NOTE | 2019-02-26 14:13 | NUR ---
Sent page to Dr. Goldberg: PAGER ID: [phone] MESSAGE: [phone] Sarbjit Gutierrez: Carotid CT results are in: 75% narrowing of right internal carotid artery and 35% narrowing of diameter of the proximal left internal carotid artery. Thanks, Karen [phone]
[2019-02-26 15:00] VITALS: BP 134/60
--- NOTE | 2019-02-26 16:31 | NUR ---
Sent page to Dr. Goldberg: PAGER ID: [phone] MESSAGE: [phone] Matt Sarbjit: Patient is wondering if he can go home, I haven't shared the results of carotid CT yet. Please advise. Thank you, Karen [phone] Addendum: 02/26/19 at 1832 by Karen Kapoor RN patient will stay the night
--- NOTE | 2019-02-26 18:32 | NUR ---
Problems reprioritized. Patient report given, questions answered & plan of care reviewed with Renetta ARAMBULA.
[2019-02-26] MEDS: atorvastatin 20mg tablet PO SCH (20:40)
[2019-02-26 22:00] VITALS: BP 121/47
[2019-02-27] VITALS (7 sets, daily range): BP systolic 117–138; BP diastolic 40–90
[2019-02-27] MEDS: normal saline 1000ml 1,000 ML IV SCH (05:00)
[2019-02-27 06:30] LABS: ALBUMIN 2.9 G/DL (3.4-5.0); ANION GAP 10 (8-16); BLOOD UREA NITROGEN 15 MG/DL (7-18); BUN/CREATININE RATIO 14.7 (5.4-32.0); CALCIUM 8.7 MG/DL (8.5-10.1); CHLORIDE 106 MMOL/L (99-107); CREATININE 1.02 MG/DL (0.60-1.10); GLUCOSE 96 MG/DL (70-104); MAGNESIUM 1.9 MG/DL (1.5-2.4); POTASSIUM 3.8 MMOL/L (3.5-5.1); SODIUM 140 MMOL/L (135-145); TOTAL CARBON DIOXIDE 24.3 MMOL/L (24-32); eGFR 70 ML/MIN
[2019-02-27 06:35] LABS: BASOPHILS # (AUTO) 0.1 X10'3 (0-0.2); EOSINOPHILS # (AUTO) 0.1 X10'3 (0-0.9); EOSINOPHILS % (AUTO) 2.3 % (0-6); HEMATOCRIT 31.2 % (42.0-52.0); HEMOGLOBIN 10.7 g/dl (14.0-17.9); LYMPHOCYTES # (AUTO) 1.2 X10'3 (1.1-4.8); LYMPHOCYTES % (AUTO) 20.4 % (21-51); MEAN CORPUSCULAR HEMOGLOBIN 36.5 PG (27.0-31.0); MEAN CORPUSCULAR HGB CONC 34.5 g/dL (33.0-36.5); MEAN CORPUSCULAR VOLUME 105.9 FL (78-98); MEAN PLATELET VOLUME 11.4 FL (7.4-10.4); MONOCYTES # (AUTO) 0.6 X10'3 (0-0.9); MONOCYTES % (AUTO) 10.8 % (2-12); NEUTROPHILS # (AUTO) 3.7 X10'3 (1.8-7.7); NEUTROPHILS % (AUTO) 65.5 % (42-75); PLATELET COUNT 108 X10'3 (140-440); RED BLOOD COUNT 2.94 X10'6 (4.70-6.10); RED CELL DISTRIBUTION WIDTH 14.5 % (11.5-14.5); WHITE BLOOD COUNT 5.7 X10'3 (4.5-11.0)
--- NOTE | 2019-02-27 07:52 | NUR ---
Patient in room PCU 3025. I have received report from Renetta ARAMBULA and had the opportunity to ask questions and assume patient care.
[2019-02-27] MEDS: K and/or MAG REPLACEMENT MC SCH (08:00)
[2019-02-27] MEDS: rivaroxaban 20mg tablet PO SCH (10:01)
[2019-02-27] MEDS: carvedilol 6.25mg tablet PO SCH ×2 (10:01→20:43)
[2019-02-27] MEDS: furosemide 20MG tablet PO SCH (10:01)
[2019-02-27] MEDS: amiodarone 200mg tablet PO SCH (10:02)
[2019-02-27] MEDS: acetylcysteine 200 MG/ml 4ml vial PO SCH ×2 (10:26→20:45)
[2019-02-27] MEDS: potassium chloride 10mEq ER tablet PO SCH (11:10)
--- NOTE | 2019-02-27 16:02 | NUR ---
page to Dr Goldberg re:Room 4094O Sarbjit MEYERS Tele Neuro consult report in pts chart Joseline [phone] awaiting call back
--- NOTE | 2019-02-27 18:21 | NUR ---
Orientee documentation: I have reviewed and agree with interventions, assessments performed and documented by RALF Trevizo. Orientee Medication Administration: For this medication-pass time frame, medication were reviewed, dispensed, administered and documented per hospital policy by RALF Trevizo.
--- NOTE | 2019-02-27 18:35 | NUR ---
Problems reprioritized. Patient report given, questions answered & plan of care reviewed with RALF Beal.
--- NOTE | 2019-02-27 18:45 | NUR ---
brought back in w/c by registered pharmacy technician and pt in chair for comfort. tray in front of him and put back onto tele unit. at bedside 2 daughters left for home.
--- NOTE | 2019-02-27 18:48 | NUR ---
Patient in room U 3025. I have received report from KHAI/FLORENCIO RN'S and had the opportunity to ask questions and assume patient care. Addendum: 02/27/19 at 1849 by Lian Fernandes RN Amended: Links added.
[2019-02-27] MEDS: atorvastatin 20mg tablet PO SCH (20:43)
--- NOTE | 2019-02-27 21:08 | NUR ---
PT SITTING IN THE CHAIR NO S&S OF DISTRESS.
[2019-02-27] MEDS: clopidogrel 75mg tablet PO SCH (22:32)
--- NOTE | 2019-02-27 23:00 | NUR ---
awoke for vitals and voided no complaints. no s&S of distress.
--- NOTE | 2019-02-28 00:28 | NUR ---
resting eyes closed without changes.
--- NOTE | 2019-02-28 02:30 | NUR ---
resting later awoke for vitals. voided 250cc cl yellow urine.
[2019-02-28 02:57] VITALS: BP 133/55
--- NOTE | 2019-02-28 03:15 | NUR ---
resting eyes closed.
--- NOTE | 2019-02-28 05:10 | NUR ---
resting eyes closed without changes.
[2019-02-28 06:00] VITALS: BP 137/51
--- NOTE | 2019-02-28 06:05 | NUR ---
Problems reprioritized. Patient report given, questions answered & plan of care reviewed with Parvin Mart. Addendum: 02/28/19 at 0606 by Lian Fernandes RN Amended: Links added.
[2019-02-28 06:06] LABS: BASOPHILS # (AUTO) 0.1 X10'3 (0-0.2); BASOPHILS % (AUTO) 1.1 % (0-1); EOSINOPHILS # (AUTO) 0.2 X10'3 (0-0.9); EOSINOPHILS % (AUTO) 3.3 % (0-6); HEMATOCRIT 29.7 % (42.0-52.0); HEMOGLOBIN 10.3 g/dl (14.0-17.9); LYMPHOCYTES # (AUTO) 1.4 X10'3 (1.1-4.8); LYMPHOCYTES % (AUTO) 26.7 % (21-51); MEAN CORPUSCULAR HEMOGLOBIN 36.6 PG (27.0-31.0); MEAN CORPUSCULAR HGB CONC 34.5 g/dL (33.0-36.5); MEAN CORPUSCULAR VOLUME 105.9 FL (78-98); MEAN PLATELET VOLUME 11.3 FL (7.4-10.4); MONOCYTES # (AUTO) 0.5 X10'3 (0-0.9); MONOCYTES % (AUTO) 10.6 % (2-12); NEUTROPHILS % (AUTO) 58.3 % (42-75); PLATELET COUNT 104 X10'3 (140-440); RED BLOOD COUNT 2.81 X10'6 (4.70-6.10); RED CELL DISTRIBUTION WIDTH 14.6 % (11.5-14.5); WHITE BLOOD COUNT 5.1 X10'3 (4.5-11.0)
[2019-02-28 06:10] LABS: ALBUMIN 2.7 G/DL (3.4-5.0); ANION GAP 6 (8-16); BLOOD UREA NITROGEN 13 MG/DL (7-18); BUN/CREATININE RATIO 12.6 (5.4-32.0); CALCIUM 8.5 MG/DL (8.5-10.1); CHLORIDE 107 MMOL/L (99-107); CREATININE 1.03 MG/DL (0.60-1.10); GLUCOSE 83 MG/DL (70-104); MAGNESIUM 1.8 MG/DL (1.5-2.4); POTASSIUM 3.7 MMOL/L (3.5-5.1); SODIUM 140 MMOL/L (135-145); TOTAL CARBON DIOXIDE 26.8 MMOL/L (24-32); eGFR 69 ML/MIN
[2019-02-28] MEDS: K and/or MAG REPLACEMENT MC SCH (08:00)
[2019-02-28] MEDS: potassium chloride 10mEq ER tablet PO SCH (08:31)
[2019-02-28] MEDS: rivaroxaban 20mg tablet PO SCH (08:32)
[2019-02-28] MEDS: clopidogrel 75mg tablet PO SCH (08:32)
[2019-02-28] MEDS: furosemide 20MG tablet PO SCH (08:32)
[2019-02-28] MEDS: carvedilol 6.25mg tablet PO SCH (08:32)
[2019-02-28] MEDS: amiodarone 200mg tablet PO SCH (08:34)
[2019-02-28] MEDS: acetylcysteine 200 MG/ml 4ml vial PO SCH (08:36)
[2019-02-28] MEDS ORDERED: ATOR20TA66 PO (10:03)
[2019-02-28] MEDS ORDERED: AMIO200T40 PO (10:03)
[2019-02-28] MEDS ORDERED: CLOP75TA35 PO (10:03)
[2019-02-28] MEDS ORDERED: CARV6.253 PO (10:03)
[2019-02-28] MEDS ORDERED: atorvastatin 20mg tablet PO SCH (21:00)
== END 2019-02-28 14:27 | disposition home or self-care (01) | DRG 74 ==
LOC: ER 22:54 → OBSVTOIN 02-24 07:24 → PCU 3S 02-24 07:24 → CMPBEDREQ 02-26 15:12
PROVIDERS: ADMIT Hospitalist; ATTEND Family Medicine
PROC: B246ZZ4 Ultrasonography of Right and Left Heart, Transesophageal (ICD-10-PCS; principal; 2019-02-24)
PROC: 5A2204Z Restoration of Cardiac Rhythm, Single (ICD-10-PCS; 2019-02-24)
PROC: B32T1ZZ Computerized Tomography (CT Scan) of Left Pulmonary Artery using Low Osmolar Contrast (ICD-10-PCS; 2019-02-24)
PROC: B3201ZZ Computerized Tomography (CT Scan) of Thoracic Aorta using Low Osmolar Contrast (ICD-10-PCS; 2019-02-24)
PROC: B32S1ZZ Computerized Tomography (CT Scan) of Right Pulmonary Artery using Low Osmolar Contrast (ICD-10-PCS; 2019-02-24)
PROC: B3251ZZ Computerized Tomography (CT Scan) of Bilateral Common Carotid Arteries using Low Osmolar Contrast (ICD-10-PCS; 2019-02-24)
PROC: B32G1ZZ Computerized Tomography (CT Scan) of Bilateral Vertebral Arteries using Low Osmolar Contrast (ICD-10-PCS; 2019-02-24)
PROC: B32R1ZZ Computerized Tomography (CT Scan) of Intracranial Arteries using Low Osmolar Contrast (ICD-10-PCS; 2019-02-24)
PROC: B3281ZZ Computerized Tomography (CT Scan) of Bilateral Internal Carotid Arteries using Low Osmolar Contrast (ICD-10-PCS; 2019-02-24)
DX: G90.8 Other disorders of autonomic nervous system (principal); I48.92 Unspecified atrial flutter; I13.0 Hypertensive heart and chronic kidney disease with heart failure and stage 1 through stage 4 chronic kidney disease, or unspecified chronic kidney disease; I25.10 Atherosclerotic heart disease of native coronary artery without angina pectoris; I48.91 Unspecified atrial fibrillation; I08.1 Rheumatic disorders of both mitral and tricuspid valves; E78.5 Hyperlipidemia, unspecified; E78.00 Pure hypercholesterolemia, unspecified; N18.3 Chronic kidney disease, stage 3 (moderate); D53.9 Nutritional anemia, unspecified; D69.6 Thrombocytopenia, unspecified; H81.10 Benign paroxysmal vertigo, unspecified ear; I50.9 Heart failure, unspecified; I65.23 Occlusion and stenosis of bilateral carotid arteries; Z95.1 Presence of aortocoronary bypass graft; Z90.49 Acquired absence of other specified parts of digestive tract; Z79.899 Other long term (current) drug therapy; Z79.01 Long term (current) use of anticoagulants; Z88.0 Allergy status to penicillin
CPT/HCPCS: 36415; 70450; 70498; 70544; 70551; 71045; 71275; 80048; 80053; 83735; 83880; 84145; 84484; 85025; 85379; 93005; 93312; 93880; 96360; 99285; G0378; J2250; J2270; J7030; Q9967

== ENCOUNTER 2019-03-08 08:34 | Inpatient (IN) | payer MEDICARE, OTHER ==
[~2019-03-08] VITALS: Ht 170.2 cm; Wt 68.2 kg
[~2019-03-08 08:34] MED LIST changes: -ATOR20TA PO; +ATOR20TA66 PO; -CARV25TA2 PO; +CARV6.253 PO; +CLOP75TA35 PO
[2019-03-08 09:03] LABS: BASOPHILS # (AUTO) 0.1 X10'3 (0-0.2); HEMOGLOBIN 10.9 g/dl (14.0-17.9); MEAN CORPUSCULAR HEMOGLOBIN 35.9 PG (27.0-31.0); MEAN CORPUSCULAR HGB CONC 32.9 g/dL (33.0-36.5); MONOCYTES # (AUTO) 0.4 X10'3 (0-0.9); NEUTROPHILS # (AUTO) 3.5 X10'3 (1.8-7.7); PLATELET COUNT 91 X10'3 (140-440); RED BLOOD COUNT 3.04 X10'6 (4.70-6.10)
[2019-03-08 09:05] LABS: BASOPHILS % (AUTO) 1.2 % (0-1); EOSINOPHILS # (AUTO) 0.2 X10'3 (0-0.9); EOSINOPHILS % (AUTO) 3.2 % (0-6); HEMATOCRIT 33.2 % (42.0-52.0); MEAN CORPUSCULAR VOLUME 109.1 FL (78-98); MEAN PLATELET VOLUME 11.9 FL (7.4-10.4); MONOCYTES % (AUTO) 7.5 % (2-12); NEUTROPHILS % (AUTO) 69.1 % (42-75); RED CELL DISTRIBUTION WIDTH 15.3 % (11.5-14.5); WHITE BLOOD COUNT 5.1 X10'3 (4.5-11.0)
[2019-03-08 09:16] LABS: INR 1.2 INR; PARTIAL THROMBOPLASTIN TIME 29 SECONDS (22-32)
[2019-03-08 09:19] LABS: ALANINE AMINOTRANSFERASE 21 U/L (12-78); ALBUMIN 3.1 G/DL (3.4-5.0); ALKALINE PHOSPHATASE 59 IU/L (46-116); ANION GAP 7 (8-16); ASPARTATE AMINO TRANSFERASE 17 U/L (10-37); BILIRUBIN,TOTAL 0.6 MG/DL (0.1-1.0); BLOOD UREA NITROGEN 19 MG/DL (7-18); BUN/CREATININE RATIO 14.5 (5.4-32.0); CALCIUM 8.4 MG/DL (8.5-10.1); CHLORIDE 111 MMOL/L (99-107); CREATININE 1.31 MG/DL (0.60-1.10); GLUCOSE 100 MG/DL (70-104); POTASSIUM 4.2 MMOL/L (3.5-5.1); SODIUM 145 MMOL/L (135-145); TOTAL CARBON DIOXIDE 26.7 MMOL/L (24-32); TOTAL PROTEIN 6.2 G/DL (6.4-8.2); eGFR 52 ML/MIN
[2019-03-08 09:29] LABS: LARGE PLATELETS MODERATE; PLATELET ESTIMATE DECREASED
[2019-03-08] MEDS ORDERED: magnesium 2GM in 50ml NS 50 ML IV PRN (10:00)
[2019-03-08] MEDS ORDERED: magnesium 4gm in 100ml NS 100 ML IV PRN (10:00)
[2019-03-08] MEDS ORDERED: ondansetron/PF 4mg/2ml inj IV PRN (10:00)
[2019-03-08] MEDS ORDERED: potassium Cl 20 mEq SR tablet PO PRN ×2 (10:00)
[2019-03-08] MEDS ORDERED: magnesium Cl slow-release 64mg tablet PO PRN (10:00)
[2019-03-08] MEDS ORDERED: magnesium hydroxide 30ml (MOM) UD suspension PO PRN (10:00)
[2019-03-08] MEDS ORDERED: mag hydrox/Alum hydrox/simeth 30ml oral suspension PO PRN (10:00)
[2019-03-08] MEDS ORDERED: potassium Cl 40MEQ/NS 500ml 500 ML IV PRN ×2 (10:00)
[2019-03-08] MEDS: normal saline 1000ml 1,000 ML IV SCH (10:14)
--- NOTE | 2019-03-08 11:30 | NUR ---
Received report from Carmel ARAMBULA in the ED. Patient will be admitted to room 3026B.
--- NOTE | 2019-03-08 11:45 | NUR ---
Patient admitted to room 3026B via gurney, accompanied by ED RN and . Patient ambulated self into bed. Tele monitor applied, vital signs taken: T: 97.6 F. HR 56, RR 16, BP 156/69, O2 96 RA, no pain. MRSA nasal swab done, changed into patient gown, and patient oriented to room. Patient is stable and has no complaints. Given call light and will continue to monitor.
[2019-03-08] MEDS ORDERED: APIX5TAB3 PO (14:12)
[2019-03-08] MEDS ORDERED: ASPI-611 PO (14:14)
[2019-03-08] MEDS ORDERED: CALC-8 PO (14:16)
--- NOTE | 2019-03-08 14:38 | NUR ---
Paged Dr Mejia regarding director telehealth informing me of patients rhythm; following page, Dr Mejia called me with a telephone order to D/C patients amiodarone. PAGER ID: [phone] MESSAGE: Chastity [phone]. RE Nabor Gutierrez 3025U. MIRA that director telehealth reported to me that patient experienced Compensatory pauses and bigeminal PVC's; HR would go down into 30's. HR is currently back up into 40's-50's.
[2019-03-08 15:00] VITALS: BP 110/38
[2019-03-08 16:11] VITALS: BP_SYST 110; BP_SYST 121; BP_SYST 139; BP_DIAS 38; BP_DIAS 54; BP_DIAS 97
--- NOTE | 2019-03-08 18:20 | NUR ---
Patient in room PCU 3026. I have received report from Chastity ARAMBULA and had the opportunity to ask questions and assume patient care. at bedside pt lying in bed comfortably, in no distress at this time, will continue to monitor.
--- NOTE | 2019-03-08 18:27 | NUR ---
Problems reprioritized. Patient report given, questions answered & plan of care reviewed with Beth RN. Patient is resting in bed, in no actute distress, and family is at bedside.
[2019-03-08 19:00] VITALS: BP 121/46
[2019-03-08] MEDS ORDERED: potassium Cl 20 mEq SR tablet PO ONE (19:35)
[2019-03-08] MEDS ORDERED: furosemide 40mg/4ml inj IV ONE (19:35)
[2019-03-08] MEDS: atorvastatin 20mg tablet PO SCH (20:27)
--- NOTE | 2019-03-08 20:30 | NUR ---
Dr Dumont at bedside, discussed placing PPM with pt, is considering placing tomorrow, placed on schedule tentatively. rc'd order for 40mg lasix IVP x 1 and 20mEq potassium x 1, and to increase daily doses by same amount. BNP in AM, NPO after breakfast.
[2019-03-08] MEDS ORDERED: temazepam 15mg capsule PO PRN (21:00)
[2019-03-08 23:00] VITALS: BP 117/48
[2019-03-09] VITALS (18 sets, daily range): BP systolic 122–170; BP diastolic 34–98
[2019-03-09 05:10] LABS: HEMOGLOBIN 10.4 g/dl (14.0-17.9)
[2019-03-09 05:12] LABS: MEAN CORPUSCULAR HEMOGLOBIN 36.1 PG (27.0-31.0); MEAN CORPUSCULAR HGB CONC 33.6 g/dL (33.0-36.5); MEAN CORPUSCULAR VOLUME 107.7 FL (78-98); MEAN PLATELET VOLUME 11.6 FL (7.4-10.4); PLATELET COUNT 86 X10'3 (140-440); RED BLOOD COUNT 2.88 X10'6 (4.70-6.10); RED CELL DISTRIBUTION WIDTH 15.2 % (11.5-14.5); WHITE BLOOD COUNT 5.8 X10'3 (4.5-11.0)
[2019-03-09 05:34] LABS: ALBUMIN 2.9 G/DL (3.4-5.0); ANION GAP 5 (8-16); BLOOD UREA NITROGEN 17 MG/DL (7-18); BUN/CREATININE RATIO 13.1 (5.4-32.0); CALCIUM 8.7 MG/DL (8.5-10.1); CHLORIDE 109 MMOL/L (99-107); GLUCOSE 85 MG/DL (70-104); MAGNESIUM 2.1 MG/DL (1.5-2.4); PHOSPHORUS 3.2 MG/DL (2.3-4.5); POTASSIUM 4.1 MMOL/L (3.5-5.1); SODIUM 143 MMOL/L (135-145); TOTAL CARBON DIOXIDE 29.1 MMOL/L (24-32); eGFR 53 ML/MIN
[2019-03-09 05:47] LABS: INR 1.2 INR; PARTIAL THROMBOPLASTIN TIME 29 SECONDS (22-32)
--- NOTE | 2019-03-09 06:13 | NUR ---
Problems reprioritized. Patient report given, questions answered & plan of care reviewed with Regino ARAMBULA.
--- NOTE | 2019-03-09 07:03 | NUR ---
Patient in room PCU 3026. I have received report from RALF Campos and had the opportunity to ask questions and assume patient care.
[2019-03-09] MEDS: furosemide 40mg tablet PO SCH (07:12)
[2019-03-09] MEDS: potassium Cl 20 mEq SR tablet PO SCH (07:12)
[2019-03-09] MEDS ORDERED: furosemide 20MG tablet PO SCH (08:00)
[2019-03-09] MEDS: K and/or MAG REPLACEMENT MC SCH (08:00)
[2019-03-09] MEDS ORDERED: amiodarone 200mg tablet PO SCH (08:00)
[2019-03-09] MEDS: clopidogrel 75mg tablet PO SCH (08:00)
[2019-03-09] MEDS ORDERED: potassium chloride 10mEq ER tablet PO SCH (08:00)
[2019-03-09] MEDS ORDERED: fentaNYL/PF 50MCG/1 ML 2ML syringe ONE ×2 (13:33→14:35)
[2019-03-09] MEDS ORDERED: clindamycin 600mg/D5W 50ml 50 ML IV ONE (13:33)
[2019-03-09] MEDS ORDERED: midazolam 2 mg/2 ml injection ONE ×2 (13:33→14:35)
[2019-03-09] MEDS ORDERED: clindamycin phosphate 150mg/ml inj. ONE (13:33)
[2019-03-09] MEDS ORDERED: LIDOcaine 1% w/EPI 1:100,000 30ml vial (MDV) ONE (13:34)
--- NOTE | 2019-03-09 16:01 | NUR ---
Patient in pathology laboratory director for 1500 vital signs.
[2019-03-09] MEDS: acetaminophen 325mg tablet PO PRN ×2 (16:58→23:16)
--- NOTE | 2019-03-09 17:16 | NUR ---
Sent to [facility] MESSAGE: Room 3021Q Sarbjit Gutierrez: Current BP reading is 170/70. Thank you, Trina & Regino [phone]
--- NOTE | 2019-03-09 17:27 | NUR ---
PAGER ID: [phone] MESSAGE: [id number] Sarbjit Gutierrez BP reading 170/64. RALF Lacy Ext [phone]
--- NOTE | 2019-03-09 17:47 | NUR ---
Orientee documentation: I have reviewed and agree with all interventions, assessments performed and documented by RALF Mena.
--- NOTE | 2019-03-09 17:47 | NUR ---
Orientee Medication Administration: For this medication-pass time frame, all medication were reviewed, dispensed, administered and documented per hospital policy by RALF Mena.
--- NOTE | 2019-03-09 18:00 | NUR ---
Patient in room PCU 3026. I have received report from Regino ARAMBULA and had the opportunity to ask questions and assume patient care.
--- NOTE | 2019-03-09 18:00 | NUR ---
Patient in room PCU 3026. I have received report from Regino ARAMBULA and had the opportunity to ask questions and assume patient care.
--- NOTE | 2019-03-09 18:29 | NUR ---
Problems reprioritized. Patient report given, questions answered & plan of care reviewed with RALF Su.
[2019-03-09] MEDS: normal saline 1000ml 1,000 ML IV SCH (19:52)
[2019-03-09] MEDS: carvedilol 6.25mg tablet PO SCH (20:24)
[2019-03-09] MEDS: atorvastatin 20mg tablet PO SCH (20:24)
--- NOTE | 2019-03-09 22:25 | NUR ---
Pt was moved to room 3020 because his room mate in 3026 became confused, agitated, and was jumping up out of bed on the pt's side and side where he just had pacemaker placed. He stated he was glad to be moved and thenkful it was a private room.
[2019-03-09] MEDS: clindamycin 600mg/D5W 50ml 50 ML IV SCH (23:00)
[2019-03-10] VITALS (9 sets, daily range): BP systolic 100–151; BP diastolic 51–81
[2019-03-10 04:28] LABS: HEMATOCRIT 33.4 % (42.0-52.0); HEMOGLOBIN 11.2 g/dl (14.0-17.9); MEAN CORPUSCULAR HGB CONC 33.6 g/dL (33.0-36.5); MEAN CORPUSCULAR VOLUME 107.1 FL (78-98); MEAN PLATELET VOLUME 10.9 FL (7.4-10.4); PLATELET COUNT 95 X10'3 (140-440); RED BLOOD COUNT 3.12 X10'6 (4.70-6.10); RED CELL DISTRIBUTION WIDTH 14.7 % (11.5-14.5); WHITE BLOOD COUNT 5.9 X10'3 (4.5-11.0)
[2019-03-10 04:38] LABS: ALBUMIN 2.8 G/DL (3.4-5.0); ANION GAP 4 (8-16); BLOOD UREA NITROGEN 13 MG/DL (7-18); BUN/CREATININE RATIO 11.9 (5.4-32.0); CALCIUM 8.6 MG/DL (8.5-10.1); CHLORIDE 107 MMOL/L (99-107); CREATININE 1.09 MG/DL (0.60-1.10); GLUCOSE 107 MG/DL (70-104); PHOSPHORUS 3.3 MG/DL (2.3-4.5); POTASSIUM 3.7 MMOL/L (3.5-5.1); SODIUM 140 MMOL/L (135-145); TOTAL CARBON DIOXIDE 28.7 MMOL/L (24-32); eGFR 65 ML/MIN
[2019-03-10 04:43] LABS: INR 1.2 INR; PARTIAL THROMBOPLASTIN TIME 28 SECONDS (22-32)
--- NOTE | 2019-03-10 06:33 | NUR ---
Patient in room PCU 3026. I have received report from Sharlene Hill RN and had the opportunity to ask questions and assume patient care.
--- NOTE | 2019-03-10 06:36 | NUR ---
Problems reprioritized. Patient report given, questions answered & plan of care reviewed with Regino ARAMBULA.
[2019-03-10] MEDS: clindamycin 600mg/D5W 50ml 50 ML IV SCH (06:50)
[2019-03-10] MEDS ORDERED: CLIN150C2 PO (07:00)
[2019-03-10] MEDS: K and/or MAG REPLACEMENT MC SCH (07:02)
[2019-03-10] MEDS: amiodarone 200mg tablet PO SCH (08:41)
[2019-03-10] MEDS: potassium Cl 20 mEq SR tablet PO SCH (08:41)
[2019-03-10] MEDS: clopidogrel 75mg tablet PO SCH (08:41)
[2019-03-10] MEDS: apixaban 5mg tablet PO SCH ×2 (08:41→20:13)
[2019-03-10] MEDS: carvedilol 6.25mg tablet PO SCH ×2 (08:41→20:13)
[2019-03-10] MEDS: furosemide 40mg tablet PO SCH (08:45)
--- NOTE | 2019-03-10 10:44 | NUR ---
Patient appealing discharge per medicare DC rights. Patient does not feel safe going home today.
--- NOTE | 2019-03-10 11:56 | NUR ---
Notified Dr Hudson and Rylie RN (casemanager) about patient medicare discharge appeal. Patient has called the number and talked to the [facility].
[2019-03-10] MEDS: acetaminophen 325mg tablet PO PRN (13:37)
--- NOTE | 2019-03-10 18:33 | NUR ---
Problems reprioritized. Patient report given, questions answered & plan of care reviewed with RALF Su.
[2019-03-10] MEDS: atorvastatin 20mg tablet PO SCH (20:13)
[2019-03-11] VITALS (7 sets, daily range): BP systolic 92–126; BP diastolic 52–78
--- NOTE | 2019-03-11 06:37 | NUR ---
Problems reprioritized. Patient report given, questions answered & plan of care reviewed with Regino ARAMBULA & Joseline ARAMBULA.
--- NOTE | 2019-03-11 06:45 | NUR ---
Patient in room PCU 3020. I have received report from Sharlene ARAMBULA and had the opportunity to ask questions and assume patient care.
[2019-03-11 06:48] LABS: HEMATOCRIT 35.8 % (42.0-52.0); HEMOGLOBIN 12.3 g/dl (14.0-17.9); MEAN CORPUSCULAR HEMOGLOBIN 36.4 PG (27.0-31.0); MEAN CORPUSCULAR HGB CONC 34.5 g/dL (33.0-36.5); MEAN CORPUSCULAR VOLUME 105.8 FL (78-98); PLATELET COUNT 112 X10'3 (140-440); RED BLOOD COUNT 3.38 X10'6 (4.70-6.10); RED CELL DISTRIBUTION WIDTH 14.6 % (11.5-14.5); WHITE BLOOD COUNT 6.6 X10'3 (4.5-11.0)
[2019-03-11 06:58] LABS: INR 1.2 INR; PARTIAL THROMBOPLASTIN TIME 31 SECONDS (22-32)
[2019-03-11 07:05] LABS: ALBUMIN 2.9 G/DL (3.4-5.0); ANION GAP 5 (8-16); BLOOD UREA NITROGEN 10 MG/DL (7-18); BUN/CREATININE RATIO 9.5 (5.4-32.0); CALCIUM 8.5 MG/DL (8.5-10.1); CHLORIDE 105 MMOL/L (99-107); CREATININE 1.05 MG/DL (0.60-1.10); GLUCOSE 91 MG/DL (70-104); PHOSPHORUS 3.1 MG/DL (2.3-4.5); POTASSIUM 4.2 MMOL/L (3.5-5.1); SODIUM 138 MMOL/L (135-145); TOTAL CARBON DIOXIDE 28.2 MMOL/L (24-32); eGFR 67 ML/MIN
[2019-03-11] MEDS: potassium Cl 20 mEq SR tablet PO SCH (07:37)
[2019-03-11] MEDS: furosemide 40mg tablet PO SCH (07:37)
[2019-03-11] MEDS: clopidogrel 75mg tablet PO SCH (07:37)
[2019-03-11] MEDS: apixaban 5mg tablet PO SCH ×2 (07:37→19:59)
[2019-03-11] MEDS: amiodarone 200mg tablet PO SCH (07:38)
[2019-03-11] MEDS: K and/or MAG REPLACEMENT MC SCH (08:00)
[2019-03-11] MEDS ORDERED: carvedilol 6.25mg tablet PO SCH (08:00)
[2019-03-11] MEDS ORDERED: digoxin 250mcg/ml 2ml ampule IV ONE ×4 (08:20→13:55)
--- NOTE | 2019-03-11 12:01 | NUR ---
Per Dr Monroy if patient still in a-fib at 1330 give another dose of digoxin.
[2019-03-11] MEDS: diltiazem 30mg tablet PO SCH ×2 (13:17→19:59)
--- NOTE | 2019-03-11 17:41 | NUR ---
Orientee documentation: I have reviewed and agree with all interventions, assessments performed and documented by RALF Cuevas.
--- NOTE | 2019-03-11 17:42 | NUR ---
[place]rientee Medication Administration: For this medication-pass time frame, all medication were reviewed, dispensed, administered and documented per hospital policy by RALF Cuevas.
--- NOTE | 2019-03-11 18:39 | NUR ---
Problems reprioritized. Patient report given, questions answered & plan of care reviewed with RALF Nance.
[2019-03-11] MEDS: atorvastatin 20mg tablet PO SCH (19:59)
[2019-03-12] MEDS: diltiazem 30mg tablet PO SCH ×2 (01:48→07:25)
[2019-03-12 03:00] VITALS: BP 124/58
[2019-03-12 05:28] LABS: HEMATOCRIT 35.3 % (42.0-52.0); MEAN CORPUSCULAR HEMOGLOBIN 36.1 PG (27.0-31.0); MEAN CORPUSCULAR VOLUME 106.1 FL (78-98); MEAN PLATELET VOLUME 11.4 FL (7.4-10.4); PLATELET COUNT 110 X10'3 (140-440); RED BLOOD COUNT 3.33 X10'6 (4.70-6.10); RED CELL DISTRIBUTION WIDTH 14.3 % (11.5-14.5); WHITE BLOOD COUNT 6.8 X10'3 (4.5-11.0)
[2019-03-12 05:38] LABS: INR 1.2 INR
[2019-03-12 06:01] LABS: ALBUMIN 2.8 G/DL (3.4-5.0); ANION GAP 7 (8-16); BLOOD UREA NITROGEN 11 MG/DL (7-18); BUN/CREATININE RATIO 9.9 (5.4-32.0); CALCIUM 8.5 MG/DL (8.5-10.1); CHLORIDE 106 MMOL/L (99-107); CREATININE 1.11 MG/DL (0.60-1.10); GLUCOSE 99 MG/DL (70-104); POTASSIUM 3.9 MMOL/L (3.5-5.1); SODIUM 140 MMOL/L (135-145); TOTAL CARBON DIOXIDE 27.4 MMOL/L (24-32); eGFR 63 ML/MIN
--- NOTE | 2019-03-12 06:27 | NUR ---
Patient in room PCU 3020. I have received report from Goyo ARAMBULA and had the opportunity to ask questions and assume patient care.
[2019-03-12 06:57] VITALS: BP 125/60
[2019-03-12] MEDS: K and/or MAG REPLACEMENT MC SCH (07:24)
[2019-03-12] MEDS: amiodarone 200mg tablet PO SCH (07:25)
[2019-03-12] MEDS: potassium Cl 20 mEq SR tablet PO SCH (07:27)
[2019-03-12] MEDS: furosemide 40mg tablet PO SCH (07:27)
[2019-03-12] MEDS: apixaban 5mg tablet PO SCH (07:27)
[2019-03-12] MEDS: clopidogrel 75mg tablet PO SCH (07:30)
[2019-03-12] MEDS ORDERED: DILT180C95 PO (09:53)
[2019-03-12 11:40] VITALS: BP_SYST 104; BP_SYST 114; BP_SYST 118; BP_DIAS 58; BP_DIAS 60; BP_DIAS 62
--- NOTE | 2019-03-12 12:13 | NUR ---
Patient discharged at this time without event per 's private vehicle via W/C per [facility] staff. Discharge instructions given, verbalized understanding. Gave patient his temporary pacemaker card. Called new meds into [facility] per patient request, IV removed-cathlon intact. Dc'd tele box. Patient eager to go home. Placed arm in sling and knows not to raise arm above head.
== END 2019-03-12 12:13 | disposition home health service (06) | DRG 242 ==
LOC: ER 08:35 → PCU 3S 11:48 → CMPBEDREQ 19:49 → PCU 3S 03-10 07:46
PROVIDERS: ADMIT Family Medicine; ATTEND Internal Medicine
PROC: 0JH606Z Insertion of Pacemaker, Dual Chamber into Chest Subcutaneous Tissue and Fascia, Open Approach (ICD-10-PCS; principal; 2019-03-09)
PROC: 02HK3JZ Insertion of Pacemaker Lead into Right Ventricle, Percutaneous Approach (ICD-10-PCS; 2019-03-09)
PROC: 02H63JZ Insertion of Pacemaker Lead into Right Atrium, Percutaneous Approach (ICD-10-PCS; 2019-03-09)
DX: I49.5 Sick sinus syndrome (principal); I50.33 Acute on chronic diastolic (congestive) heart failure; I48.92 Unspecified atrial flutter; I13.0 Hypertensive heart and chronic kidney disease with heart failure and stage 1 through stage 4 chronic kidney disease, or unspecified chronic kidney disease; N17.9 Acute kidney failure, unspecified; I25.10 Atherosclerotic heart disease of native coronary artery without angina pectoris; N18.3 Chronic kidney disease, stage 3 (moderate); D63.8 Anemia in other chronic diseases classified elsewhere; E78.00 Pure hypercholesterolemia, unspecified; D69.6 Thrombocytopenia, unspecified; I48.0 Paroxysmal atrial fibrillation; E78.5 Hyperlipidemia, unspecified; I45.10 Unspecified right bundle-branch block; I25.2 Old myocardial infarction; Z79.01 Long term (current) use of anticoagulants; Z79.02 Long term (current) use of antithrombotics/antiplatelets; Z79.899 Other long term (current) drug therapy; Z90.49 Acquired absence of other specified parts of digestive tract; Z95.1 Presence of aortocoronary bypass graft; Z95.5 Presence of coronary angioplasty implant and graft; Z88.0 Allergy status to penicillin; Z79.82 Long term (current) use of aspirin
CPT/HCPCS: 33208; 36415; 71045; 71046; 80048; 80053; 83735; 83880; 84100; 84484; 85025; 85027; 85610; 85730; 87070; 93005; 99152; 99153; 99285; A4565; A4620; A6449; C1785; C1898; G0378; J1160; J1940; J2250; J3010; J3490; J7030

== ENCOUNTER 2019-05-12 07:11 | Day surgery (SDC) | payer MEDICARE, OTHER ==
[2019-05-11 17:13] LABS: BASOPHILS # (AUTO) 0.1 X10'3 (0-0.2); BASOPHILS % (AUTO) 1.4 % (0-1); EOSINOPHILS # (AUTO) 0.1 X10'3 (0-0.9); EOSINOPHILS % (AUTO) 1.6 % (0-6); HEMATOCRIT 33.9 % (42.0-52.0); HEMOGLOBIN 11.5 g/dl (14.0-17.9); LYMPHOCYTES # (AUTO) 1.4 X10'3 (1.1-4.8); LYMPHOCYTES % (AUTO) 27.5 % (21-51); MEAN CORPUSCULAR HEMOGLOBIN 37.2 PG (27.0-31.0); MEAN CORPUSCULAR VOLUME 109.3 FL (78-98); MEAN PLATELET VOLUME 11.5 FL (7.4-10.4); MONOCYTES # (AUTO) 0.5 X10'3 (0-0.9); MONOCYTES % (AUTO) 10.6 % (2-12); NEUTROPHILS % (AUTO) 58.9 % (42-75); PLATELET COUNT 106 X10'3 (140-440); RED CELL DISTRIBUTION WIDTH 15.7 % (11.5-14.5); WHITE BLOOD COUNT 5.1 X10'3 (4.5-11.0)
[2019-05-11 17:38] LABS: ALBUMIN 3.6 G/DL (3.4-5.0); ANION GAP 6 (8-16); BLOOD UREA NITROGEN 18 MG/DL (7-18); BUN/CREATININE RATIO 15.4 (5.4-32.0); CALCIUM 8.9 MG/DL (8.5-10.1); CHLORIDE 106 MMOL/L (99-107); CREATININE 1.17 MG/DL (0.60-1.10); GLUCOSE 84 MG/DL (70-104); POTASSIUM 4.4 MMOL/L (3.5-5.1); SODIUM 140 MMOL/L (135-145); TOTAL CARBON DIOXIDE 27.7 MMOL/L (24-32); eGFR 60 ML/MIN
[2019-05-11 18:16] LABS: LARGE PLATELETS FEW; PLATELET ESTIMATE DECREASED
[~2019-05-12] VITALS: Ht 170.2 cm; Wt 66.6 kg
[2019-05-12] VITALS (17 sets, daily range): BP systolic 108–137; BP diastolic 62–83
[~2019-05-12 07:11] MED LIST changes: -AMIO200T40 PO; +APIX5TAB3 PO; +ASPI-611 PO; +CALC-8 PO; -CARV6.253 PO; +DILT180C95 PO; -RIVA20TA PO
[2019-05-12] MEDS ORDERED: atropine 0.1mg/ml 10ml syringe IV ONE (07:45)
[2019-05-12] MEDS ORDERED: amiodarone in dextrose, iso-osm 150mg/100ml bag IV ONE (07:45)
[2019-05-12] MEDS ORDERED: MIDAZolam 5mg/ml 2ml vial IV ONE (07:45)
[2019-05-12] MEDS ORDERED: morphine 10mg/ml inj. IV ONE (07:45)
[2019-05-12] MEDS ORDERED: LORazepam 0.5 MG tablet PO ONE (07:45)
[2019-05-12] MEDS ORDERED: normal saline 1000ml 1,000 ML IV SCH (07:45)
[2019-05-12] MEDS ORDERED: diphenhydrAMINE 25mg capsule PO ONE (07:45)
[2019-05-12] MEDS ORDERED: OSC500T PO (09:00)
[2019-05-12] MEDS ORDERED: CARV6.253 PO (09:00)
[2019-05-12] MEDS ORDERED: DILT180C53 PO (09:00)
[2019-05-12] MEDS ORDERED: AMIO200T40 PO (09:00)
[2019-05-12] MEDS ORDERED: CLOP75TA15 PO (09:00)
[2019-05-12] MEDS ORDERED: ATOR20TA PO (09:00)
== END 2019-05-12 12:45 | disposition home or self-care (01) ==
LOC: SSTAY O 07:11
PROVIDERS: ATTEND Internal Medicine Cardiovascular Disease
DX: I48.1 Persistent atrial fibrillation (principal); E78.5 Hyperlipidemia, unspecified; I73.9 Peripheral vascular disease, unspecified; I11.0 Hypertensive heart disease with heart failure; I50.32 Chronic diastolic (congestive) heart failure; I49.5 Sick sinus syndrome; I25.10 Atherosclerotic heart disease of native coronary artery without angina pectoris; Z95.1 Presence of aortocoronary bypass graft; Z95.0 Presence of cardiac pacemaker; Z79.899 Other long term (current) drug therapy; Z79.01 Long term (current) use of anticoagulants; Z98.890 Other specified postprocedural states; Z85.828 Personal history of other malignant neoplasm of skin; Z88.0 Allergy status to penicillin; Z87.891 Personal history of nicotine dependence
CPT/HCPCS: 36415; 80048; 85025; 85610; 92960; 93005; 94760; J0282; J0461; J2250; J2270; J7030

== ENCOUNTER 2020-05-31 05:59 | Day surgery (SDC) | payer MEDICARE, OTHER ==
[2020-05-30 13:21] LABS: BASOPHILS # (AUTO) 0.1 X10'3 (0-0.2); BASOPHILS % (AUTO) 1.4 % (0-1); EOSINOPHILS # (AUTO) 0.1 X10'3 (0-0.9); EOSINOPHILS % (AUTO) 0.6 % (0-6); HEMATOCRIT 37.4 % (42.0-52.0); HEMOGLOBIN 12.6 g/dl (14.0-17.9); LYMPHOCYTES # (AUTO) 1.1 X10'3 (1.1-4.8); LYMPHOCYTES % (AUTO) 12.1 % (21-51); MEAN CORPUSCULAR HGB CONC 33.6 g/dL (33.0-36.5); MEAN CORPUSCULAR VOLUME 110.1 FL (78-98); MEAN PLATELET VOLUME 12.2 FL (7.4-10.4); MONOCYTES # (AUTO) 0.6 X10'3 (0-0.9); MONOCYTES % (AUTO) 7.1 % (2-12); NEUTROPHILS # (AUTO) 7.1 X10'3 (1.8-7.7); NEUTROPHILS % (AUTO) 78.8 % (42-75); PLATELET COUNT 109 X10'3 (140-440); RED CELL DISTRIBUTION WIDTH 14.1 % (11.5-14.5)
[2020-05-30 13:34] LABS: PARTIAL THROMBOPLASTIN TIME 25 SECONDS (22-32)
[2020-05-30 13:43] LABS: ANION GAP 6 (8-16); BLOOD UREA NITROGEN 37 MG/DL (7-18); BUN/CREATININE RATIO 28.9 (5.4-32.0); CALCIUM 8.7 MG/DL (8.5-10.1); CHLORIDE 108 MMOL/L (99-107); CREATININE 1.28 MG/DL (0.60-1.10); GLUCOSE 124 MG/DL (70-104); POTASSIUM 4.2 MMOL/L (3.5-5.1); SODIUM 141 MMOL/L (135-145); TOTAL CARBON DIOXIDE 26.7 MMOL/L (24-32); eGFR 54 ML/MIN
[2020-05-30 14:25] LABS: PLATELET ESTIMATE DECREASED
[2020-05-30 14:37] LABS: BURR CELLS 1+
[2020-05-31] VITALS (13 sets, daily range): BP systolic 111–165; BP diastolic 54–88
[~2020-05-31] VITALS: Ht 170.2 cm; Wt 62.6 kg
[~2020-05-31 05:59] MED LIST changes: +AMIO200T61 PO; -ASPI-611 PO; +ATOR20TA PO; -ATOR20TA66 PO; -CALC-8 PO; +CARV6.253 PO; +CLOP75TA15 PO; -CLOP75TA35 PO; +DILT180C53 PO; -DILT180C95 PO; +OSC500T PO
[2020-05-31] MEDS ORDERED: normal saline 1,000 ML IV SCH (06:15)
[2020-05-31] MEDS ORDERED: diphenhydrAMINE 25mg capsule PO PRN (06:15)
[2020-05-31] MEDS ORDERED: LORazepam 0.5 MG tablet PO PRN (06:15)
[2020-05-31] MEDS ORDERED: APIX5TAB3 PO (06:30)
[2020-05-31] MEDS ORDERED: midazolam 2 mg/2 ml injection ONE (07:32)
[2020-05-31] MEDS ORDERED: nitroGLYCERIN-Tridil 50MG/D5W 250 ML IV ONE (07:32)
[2020-05-31] MEDS ORDERED: fentaNYL/PF 50MCG/1 ML 2ML syringe ONE (07:32)
[2020-05-31] MEDS ORDERED: LIDOcaine 1% (10mg/ml)w/preservative injection 20ml MDV ONE (07:33)
[2020-05-31] MEDS ORDERED: iohexol 350MG/ML 100ml bottle IV ONE (07:33)
[2020-05-31] MEDS ORDERED: iohexol 350 MG/ML 50ML vial IV ONE (07:33)
[2020-05-31] MEDS ORDERED: LIDOcaine 1% W/epiNEPHrine 1:100,000 20ml vial ONE (07:33)
[2020-05-31] MEDS ORDERED: heparin 1,000unit/ml 10ml vial 10 ML ONE (08:19)
[2020-05-31 09:16] LABS: ISTAT HGB ART 10.9 g/dl (14.0-18.0); ISTAT Hct ART 32 %PCV (42-52); ISTAT O2 SATURATION ARTERIAL 98 % (95-98); ISTAT SOURCE ART
[2020-05-31] MEDS ORDERED: OXAZEpam 15mg capsule PO ONE (11:00)
[2020-05-31] MEDS ORDERED: HYDROcodone/acetaminophen 10/325mg tab PO PRN (11:00)
[2020-06-01] MEDS ORDERED: TRAM50TA2 PO (11:39)
[2020-06-01] MEDS ORDERED: GABA-530 PO (11:39)
[2020-06-01] MEDS ORDERED: LIDO700A32 TOP (12:07)
== END 2020-05-31 16:00 | disposition home or self-care (01) ==
LOC: SSTAY O 05:59
PROVIDERS: ATTEND Internal Medicine Cardiovascular Disease
DX: R53.83 Other fatigue (principal); R06.02 Shortness of breath; I25.10 Atherosclerotic heart disease of native coronary artery without angina pectoris; I25.82 Chronic total occlusion of coronary artery; E78.49 Other hyperlipidemia; I35.0 Nonrheumatic aortic (valve) stenosis; I11.0 Hypertensive heart disease with heart failure; I50.32 Chronic diastolic (congestive) heart failure; I48.91 Unspecified atrial fibrillation; Z85.828 Personal history of other malignant neoplasm of skin; Z79.01 Long term (current) use of anticoagulants; Z79.899 Other long term (current) drug therapy; Z95.1 Presence of aortocoronary bypass graft; Z95.0 Presence of cardiac pacemaker; Z98.890 Other specified postprocedural states; Z87.891 Personal history of nicotine dependence
CPT/HCPCS: 36415; 76937; 80048; 82803; 83880; 85014; 85025; 85610; 85730; 93005; 93461; 93567; 99152; 99153; C1769; C1887; J1644; J2001; J2250; J3010; J7030; Q0163; Q9967; A4620; A6258; C1751; J3490

== ENCOUNTER 2020-06-01 10:36 | Emergency (ER) | payer MEDICARE, OTHER ==
[~2020-06-01] VITALS: Ht 170.2 cm; Wt 60.0 kg
[~2020-06-01 10:36] MED LIST changes: -CLOP75TA15 PO; -FURO-150 PO; -POTA10TA19 PO
[2020-06-01] MEDS ORDERED: dexamethasone 4mg tablet PO ONE (10:45)
[2020-06-01] MEDS ORDERED: LIDOcaine 5% patch TP STA (11:27)
[2020-06-01] MEDS ORDERED: GABA-530 PO (11:39)
[2020-06-01] MEDS ORDERED: TRAM50TA2 PO (11:39)
[2020-06-01] MEDS ORDERED: LIDO700A32 TOP (12:07)
[2020-06-01 12:12] VITALS: BP 97/52
== END 2020-06-01 12:14 | disposition home or self-care (01) ==
LOC: ER 10:37
DX: M54.5 Low back pain (principal); R51 Headache; R42 Dizziness and giddiness; I48.91 Unspecified atrial fibrillation; I50.9 Heart failure, unspecified; E78.00 Pure hypercholesterolemia, unspecified; I25.2 Old myocardial infarction; Z95.1 Presence of aortocoronary bypass graft; Z90.49 Acquired absence of other specified parts of digestive tract; Z88.0 Allergy status to penicillin; Z79.01 Long term (current) use of anticoagulants; Z79.899 Other long term (current) drug therapy
CPT/HCPCS: 99284

== ENCOUNTER 2020-08-06 09:07 | Emergency (ER) | payer MEDICARE, OTHER ==
[~2020-08-06] VITALS: Ht 170.2 cm; Wt 65.0 kg
[~2020-08-06 09:07] MED LIST changes: +GABA-530 PO; +LIDO700A32 TOP
[2020-08-06 09:16] VITALS: BP 90/64
== END 2020-08-06 10:36 | disposition home or self-care (01) ==
LOC: ER 09:07
DX: G89.29 Other chronic pain (principal); M54.5 Low back pain; E78.00 Pure hypercholesterolemia, unspecified; I50.9 Heart failure, unspecified; I48.91 Unspecified atrial fibrillation; I25.2 Old myocardial infarction; Z90.49 Acquired absence of other specified parts of digestive tract; Z95.1 Presence of aortocoronary bypass graft; Z88.0 Allergy status to penicillin; Z79.01 Long term (current) use of anticoagulants; Z79.899 Other long term (current) drug therapy
CPT/HCPCS: 99281

== ENCOUNTER 2020-08-07 11:07 | Emergency (ER) | payer MEDICARE, OTHER ==
[~2020-08-07] VITALS: Ht 170.2 cm; Wt 64.0 kg
--- NOTE | 2020-08-07 11:41 | NUR ---
Patient resting comfortably
[2020-08-07 11:59] LABS: BASOPHILS # (AUTO) 0.1 X10'3 (0-0.2); BASOPHILS % (AUTO) 1.3 % (0-1); EOSINOPHILS # (AUTO) 0.1 X10'3 (0-0.9); EOSINOPHILS % (AUTO) 1.6 % (0-6); HEMATOCRIT 28.5 % (42.0-52.0); HEMOGLOBIN 9.6 g/dl (14.0-17.9); LYMPHOCYTES # (AUTO) 0.7 X10'3 (1.1-4.8); LYMPHOCYTES % (AUTO) 11.5 % (21-51); MEAN CORPUSCULAR HEMOGLOBIN 38.6 PG (27.0-31.0); MEAN CORPUSCULAR HGB CONC 33.6 g/dL (33.0-36.5); MEAN PLATELET VOLUME 10.5 FL (7.4-10.4); MONOCYTES # (AUTO) 0.5 X10'3 (0-0.9); MONOCYTES % (AUTO) 8.2 % (2-12); NEUTROPHILS % (AUTO) 77.4 % (42-75); PLATELET COUNT 135 X10'3 (140-440); RED BLOOD COUNT 2.48 X10'6 (4.70-6.10); RED CELL DISTRIBUTION WIDTH 19.1 % (11.5-14.5); WHITE BLOOD COUNT 6.4 X10'3 (4.5-11.0)
[2020-08-07 12:05] LABS: ALANINE AMINOTRANSFERASE 22 U/L (12-78); ALBUMIN/GLOBULIN RATIO 0.9 (1.1-1.5); ALKALINE PHOSPHATASE 70 IU/L (46-116); ANION GAP 2 (8-16); ASPARTATE AMINO TRANSFERASE 20 U/L (10-37); BILIRUBIN,TOTAL 0.7 MG/DL (0.1-1.0); BLOOD UREA NITROGEN 22 MG/DL (7-18); BUN/CREATININE RATIO 17.1 (5.4-32.0); CALCIUM 8.7 MG/DL (8.5-10.1); CHLORIDE 110 MMOL/L (99-107); CREATININE 1.29 MG/DL (0.60-1.10); GLUCOSE 113 MG/DL (70-104); POTASSIUM 4.9 MMOL/L (3.5-5.1); SODIUM 142 MMOL/L (135-145); TOTAL CARBON DIOXIDE 29.9 MMOL/L (24-32); TOTAL PROTEIN 6.5 G/DL (6.4-8.2); eGFR 53 ML/MIN
[2020-08-07 12:38] LABS: CLARITY,URINE SLIGHTLY CLOUDY (Clear); GLUCOSE, URINE NEGATIVE (Neg); KETONES,URINE TRACE mg/dl (Neg); LEUKOCYTE ESTERASE ,URINE NEGATIVE (Neg); NITRITES, URINE NEGATIVE (Neg); OCCULT BLOOD,URINE NEGATIVE (Neg); PROTEIN,URINE NEGATIVE (Neg)
[2020-08-07 12:44] LABS: UA COLLECTION TYPE CLN CATCH MIDSTREAM
[2020-08-07 12:45] LABS: COLOR,URINE DARK YELLOW (Yellow)
[2020-08-07] MEDS ORDERED: HYDROcodone/acetaminophen 5mg/325mg tablet PO ONE (12:45)
[2020-08-07 12:46] LABS: BACTERIA,URINE NONE SEEN /HPF (Neg); MUCUS STRANDS MODERATE /LPF (Neg); RBC,URINE NONE SEEN /HPF (0-2); SQUAMOUS EPITHELIAL CELL,UR MODERATE /LPF (FEW); WBC,URINE 0-4 /HPF (0-4)
[2020-08-07 12:47] LABS: CAL OXALATE CRYSTALS FEW /HPF (NEGATIVE); HYALINE CASTS >30 /LPF (NEGATIVE)
[2020-08-07 12:58] LABS: ANISOCYTOSIS 2+; PLATELET ESTIMATE DECREASED
[2020-08-07 13:47] VITALS: BP 105/60
== END 2020-08-07 13:48 | disposition home or self-care (01) ==
LOC: ER 11:08
DX: G89.29 Other chronic pain (principal); M54.5 Low back pain; R53.1 Weakness; R20.0 Anesthesia of skin; M62.838 Other muscle spasm; I48.91 Unspecified atrial fibrillation; I50.9 Heart failure, unspecified; E78.00 Pure hypercholesterolemia, unspecified; I25.2 Old myocardial infarction; Z90.89 Acquired absence of other organs; Z98.890 Other specified postprocedural states; Z88.0 Allergy status to penicillin; Z79.899 Other long term (current) drug therapy
CPT/HCPCS: 36415; 72128; 72131; 80053; 81001; 85008; 85025; 99284